=== PATIENT | male | born 1975 | race Caucasian/White ===

== ENCOUNTER 2024-04-01 08:09 | Outpatient (CLI) | payer OTHER, SELFPAY ==
--- NOTE | ~2024-04-01 | XR_ITS ---
EXAMINATION: XR hip RT min 2V DATE: 04/01/2024 08:46 INDICATION: Right hip pain TECHNIQUE: Anteroposterior and frog-leg lateral views of the right hip were obtained. COMPARISON: None. FINDINGS: Alignment is normal. No fracture or suspected osteonecrosis. Osteoarthritis with mild nonuniform join t space narrowing at the right hip. 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 There is also mild bilate ral sacroiliac in the lower lumbar facet osteoarthritis. Multiple phleboliths in the pelvis. IMPRESSION: 1. 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 Reviewed, dictated and finalized at location A. IMPRESSION: 1. 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
== END 2024-04-01 08:10 ==
LOC: MICIMG 08:12
PROVIDERS: PCP Internal Medicine; Visit Provider Internal Medicine
DX: M25.551 Pain in right hip (principal)
CPT/HCPCS: 73502